=== PATIENT | female | born 1985 | race Caucasian/White ===

== ENCOUNTER → 2023-12-04 09:00 | Outpatient (REF) | payer BC, SELFPAY | LOC: DHSLP 09:00 | PROVIDERS: ATTENDING PHYSICIAN Otolaryngology; FAMILY PHYSICIAN Nurse Practitioner Family | DX: G47.33 Obstructive sleep apnea (adult) (pediatric) (principal); R06.83 Snoring; K21.9 Gastro-esophageal reflux disease without esophagitis | CPT/HCPCS: 95806 ==

== ENCOUNTER → 2024-11-05 09:44 | Outpatient (REF) | payer OTHER, BC, SELFPAY ==
[2024-11-07 08:30] LABS: Quantiferon Mitogen minus NIL 9.93 IU/mL; Quantiferon NIL 0.07 IU/mL; Quantiferon Plus TB1 minus NIL 0.02 IU/mL (<=0.34); Quantiferon Plus TB2 minus NIL 0.03 IU/mL (<=0.34); Quantiferon TB Gold Plus Negative (Negative)
== END ==
LOC: REG 09:44
PROVIDERS: ATTENDING PHYSICIAN Nurse Practitioner Family; FAMILY PHYSICIAN Nurse Practitioner Family
DX: Z23 Encounter for immunization (principal)
CPT/HCPCS: 36415; 86480

== ENCOUNTER → 2025-04-05 09:44 | Outpatient (REF) | payer BC, SELFPAY | LOC: EMG 09:44 | PROVIDERS: ATTENDING PHYSICIAN Orthopaedic Surgery; FAMILY PHYSICIAN Nurse Practitioner Family | DX: R20.0 Anesthesia of skin (principal) | CPT/HCPCS: 95886; 95909 ==

== ENCOUNTER 2025-05-26 06:51 | Outpatient (RCR) | payer BC, SELFPAY | END 2025-05-26 23:59 | disposition home or self-care (01) | LOC: RPT 06:51 | PROVIDERS: ATTENDING PHYSICIAN Student in an Organized Health Care Education/Training Program; PRIMARYCARE PHYSICIAN Nurse Practitioner Family | DX: M25.372 Other instability, left ankle (principal); M79.672 Pain in left foot; Z73.6 Limitation of activities due to disability; M62.81 Muscle weakness (generalized) | CPT/HCPCS: 97110; 97140; 97162 ==

== ENCOUNTER 2025-06-20 13:14 | Outpatient (RCR) | payer BC, SELFPAY | END 2025-06-20 23:59 | disposition home or self-care (01) | LOC: RPT 13:14 | PROVIDERS: ATTENDING PHYSICIAN Student in an Organized Health Care Education/Training Program; PRIMARYCARE PHYSICIAN Nurse Practitioner Family | DX: M25.372 Other instability, left ankle (principal); M79.672 Pain in left foot; Z73.6 Limitation of activities due to disability; M62.81 Muscle weakness (generalized) | CPT/HCPCS: 97110; 97140 ==